=== PATIENT | male | born 1980 | race Caucasian/White ===

== ENCOUNTER 2021-05-04 17:52 | Emergency (ER) | payer OTHER ==
[2021-05-04 18:21] VITALS: BP 114/76; PULSE 70; TEMP 97.8; BMI 25.1
[2021-05-04] MEDS ORDERED: SODIUM CHLORIDE 0.9% 500 ML INFUS.BAG IV ONE (19:50)
[2021-05-04] MEDS ORDERED: ACETAMINOPHEN 1000 MG/100 ML BAG IVPB ONE (19:51)
[2021-05-04] MEDS ORDERED: METOCLOPRAMIDE HCL INJECTION 10 MG/2 ML VIAL IVPUSH ONE (19:51)
[2021-05-04 20:39] LABS: BASO % 0.5 % (0-2.0); HEMATOCRIT 42.9 % (35.4-49); HEMOGLOBIN 14.9 GM/dL (11.7-16.9); LYMPH % 29.2 % (8-40); MCH 31.6 pg (25.7-33.7); MCHC 34.7 g/dl (32.0-35.9); MEAN CELL VOLUME 91.3 fl (80-96); MEAN PLT VOLUME 7.3 fl (7.5-11.1); MONO % 8.5 % (3.8-10.2); NEUT % 58.8 % (42.8-82.8); PLATELET COUNT 274 10^3/uL (134-434); RDW 13.2 % (11.9-15.9); WHITE BLOOD COUNT 6.8 K/mm3 (4.0-10.0)
[2021-05-04 20:54] LABS: BLOOD UREA NITROGEN 23.1 mg/dL (7-18); CALCIUM 9.6 mg/dL (8.5-10.1)
[2021-05-04 20:55] LABS: ALBUMIN 4.2 g/dl (3.4-5.0)
[2021-05-04 20:58] LABS: CREATININE 1.3 mg/dL (0.55-1.3)
[2021-05-04 20:59] LABS: BILIRUBIN,TOTAL 0.9 mg/dL (0.2-1); TOT PROT 8.1 g/dl (6.4-8.2)
== END 2021-05-04 23:20 | disposition home or self-care (01) ==
LOC: JER 17:52
PROC: 3E0333Z Introduction of Anti-inflammatory into Peripheral Vein, Percutaneous Approach (ICD-10-PCS; principal; 2021-05-04)
PROC: 3E033GC Introduction of Other Therapeutic Substance into Peripheral Vein, Percutaneous Approach (ICD-10-PCS; 2021-05-04)
DX: R51.9 Headache, unspecified (principal)
CPT/HCPCS: 36415; 70450-TC; 71046-TC-FY; 80053; 84484; 85025; 93005; 93010; 96374; 96375; 99285-25

== ENCOUNTER 2023-08-25 15:59 | Emergency (ER) | payer SELFPAY ==
[2023-08-25 16:03] VITALS: BP 122/72; PULSE 73; RESP 18; TEMP 98.3; BMI 25.8
[2023-08-25 16:59] LABS: URINE APPEARANCE CLEAR; URINE BILIRUBIN NEGATIVE (NEGATIVE); URINE COLOR DK YELLOW; URINE GLUCOSE (UA) NEGATIVE (NEGATIVE); URINE KETONE NEGATIVE (NEGATIVE); URINE LEUK ESTERASE NEGATIVE (NEGATIVE); URINE NITRITE NEGATIVE (NEGATIVE); URINE PROTEIN NEGATIVE (NEGATIVE)
[2023-08-25 18:17] LABS: BASO % 0.5 % (0-2.0); EOS % 2.4 % (0-4.5); HEMATOCRIT 40.5 % (35.4-49); LYMPH % 25.8 % (8-40); MCH 31.6 pg (25.7-33.7); MCHC 34.7 g/dl (32.0-35.9); MEAN CELL VOLUME 91.3 fl (80-96); MEAN PLT VOLUME 7.1 fl (7.5-11.1); MONO % 8.8 % (3.8-10.2); NEUT % 62.5 % (42.8-82.8); PLATELET COUNT 301 10^3/uL (134-434); RBC 4.43 M/mm3 (4.00-5.60); WHITE BLOOD COUNT 7.1 K/mm3 (4.0-10.0)
[2023-08-25 18:58] LABS: BLOOD UREA NITROGEN 16.5 mg/dL (7-18); CALCIUM 9.2 mg/dL (8.5-10.1)
[2023-08-25 19:01] LABS: CREATININE 0.9 mg/dL (0.55-1.3)
[2023-08-25 19:03] LABS: BILIRUBIN,TOTAL 0.9 mg/dL (0.2-1); TOT PROT 7.5 g/dl (6.4-8.2)
== END 2023-08-25 20:57 | disposition home or self-care (01) ==
LOC: JER 15:59
DX: R30.0 Dysuria (principal); R10.30 Lower abdominal pain, unspecified; R35.0 Frequency of micturition
CPT/HCPCS: 36415; 74177-TC; 80053; 81003; 85025; 87086; 87491; 87591; 99285-25; Q9967